=== PATIENT | male | born 1970 | race Caucasian/White ===

== ENCOUNTER 2023-10-28 10:20 | Emergency (ER) | payer MEDICARE ==
[~2023-10-28] VITALS: Ht 180.3 cm; Wt 98.0 kg
[2023-10-28] MEDS: FENTANYL CITRATE PF 50 MCG/1 ML 2ML VIAL IVP ONE (14:14)
[2023-10-28 16:57] VITALS: BP 134/92; PULSE 72; RESP 19; O2SAT 96
[2023-10-28] MEDS ORDERED: IBUP-2077 PO (17:17)
[2023-10-28] MEDS ORDERED: HYDR-4060 PO (17:17)
[2023-10-28] MEDS ORDERED: ONDA-243 PO (17:17)
== END 2023-10-28 18:01 | disposition home or self-care (01) ==
LOC: EDH 10:20
DX: S42.292A Other displaced fracture of upper end of left humerus, initial encounter for closed fracture (principal); S40.012A Contusion of left shoulder, initial encounter; I10 Essential (primary) hypertension; Z86.73 Personal history of transient ischemic attack (TIA), and cerebral infarction without residual deficits; X58.XXXA Exposure to other specified factors, initial encounter; Y93.89 Activity, other specified; Y92.89 Other specified places as the place of occurrence of the external cause; Y99.8 Other external cause status
CPT/HCPCS: 99285; 96374; 73200; 73030; J3010; 29105